=== PATIENT | female | born 1940 | race Caucasian/White ===

== ENCOUNTER 2021-02-07 23:18 | Inpatient (IN) | payer OTHER, MEDICAID ==
[~2021-02-07] VITALS: Ht 160 cm; Wt 87.1 kg
[2021-02-08] MEDS ORDERED: HEPARIN 5000 UNITS/ML VIAL IV ONE
[2021-02-08] MEDS ORDERED: ASPIRIN 325MG EC TABLET PO ONE
[2021-02-08 00:19] LABS: BASOPHILS % 0.4 % (0.0-2.0); EOSINOPHILS % 0.1 % (0.0-5.0); HEMATOCRIT. 36.6 % (36.0-48.0); HEMOGLOBIN. 12.4 g/dL (12.0-16.0); LYMPHOCYTES % 17.7 % (20.0-50.0); MEAN CORPUSCULAR HEMOGLOBIN 29.6 pg (28.0-32.0); MEAN CORPUSCULAR VOLUME 87.2 fL (81.0-99.0); MEAN PLATELET VOLUME 10.2 fl (7.4-10.4); MONOCYTES % 5.8 % (2.0-8.0); PLATELET 170 x1000/uL (130-400); RED CELL DISTRIBUTION WIDTH 13.3 % (11.6-14.6)
[2021-02-08 00:22] LABS: CHLORIDE 105 mEq/L (98-107)
[2021-02-08 01:01] LABS: INR 1.3; PARTIAL THROMBOPLASTIN TIME 52.3 sec (23.4-31.0); PROTHROMBIN TIME 13.9 sec (9.6-11.0)
[2021-02-08] MEDS ORDERED: HEPARIN 80 UNITS/KG BOLUS IV SCH (02:00)
[2021-02-08] MEDS ORDERED: HEPARIN BOLUS PRN aPTT <36 IV (02:00)
[2021-02-08] MEDS ORDERED: HEPARIN 25,000 UNITS PREMIX 250 ML IV SCH (02:00)
[2021-02-08] MEDS ORDERED: HEPARIN BOLUS PRN aPTT 37-44 IV (02:00)
[2021-02-08] MEDS ORDERED: IOHEXOL-350 100 ML BOTTLE ONE (04:41)
[2021-02-08 12:23] VITALS: BP 131/51
[2021-02-08] MEDS ORDERED: APIX5TAB MT (12:59)
[2021-02-08] MEDS ORDERED: LEVO25TA7 MT (13:03)
[2021-02-08] MEDS ORDERED: HYDROCODONE/ACETAMINOPHEN 5/325MG TABLET PO PRN (13:45)
[2021-02-08] MEDS ORDERED: ACETAMINOPHEN 325MG TABLET PO PRN (13:45)
[2021-02-08] MEDS ORDERED: IPRATROPIUM/ALBUTEROL 0.5-3(2.5)MG/3ML NEB HHN PRN (13:45)
[2021-02-08] MEDS ORDERED: ONDANSETRON HCL 4MG/2ML INJ IV PRN (13:45)
[2021-02-08] MEDS: LEVOFLOXACIN 500MG PREMIX 100 ML IV SCH (14:35)
[2021-02-08 16:00] VITALS: BP 103/58
[2021-02-08 20:00] VITALS: BP 130/49
[2021-02-09] VITALS: BP 126/52
[2021-02-09 04:00] VITALS: BP 126/58
[2021-02-09 06:37] LABS: BASOPHILS % 0.2 % (0.0-2.0); HEMATOCRIT. 34.6 % (36.0-48.0); HEMOGLOBIN. 11.6 g/dL (12.0-16.0); LYMPHOCYTES % 14.1 % (20.0-50.0); MEAN CORPUSCULAR HEMOGLOBIN 29.3 pg (28.0-32.0); MEAN CORPUSCULAR VOLUME 87.3 fL (81.0-99.0); MEAN PLATELET VOLUME 10.5 fl (7.4-10.4); MONOCYTES % 5.3 % (2.0-8.0); NEUTROPHILS % 80.4 % (40.0-76.0); PLATELET 168 x1000/uL (130-400); RED BLOOD CELL COUNT 3.96 mill/uL (4.2-5.4); RED CELL DISTRIBUTION WIDTH 13.2 % (11.6-14.6)
[2021-02-09 06:45] LABS: D-DIMER 0.74 mg/L FEU (<0.50); PARTIAL THROMBOPLASTIN TIME 48.4 sec (23.4-31.0)
[2021-02-09 07:03] LABS: CHLORIDE 106 mEq/L (98-107)
[2021-02-09 07:11] LABS: HDL CHOLESTEROL 31 mg/dL (40-59)
[2021-02-09 07:15] LABS: CREATINE KINASE 43 IU/L (26-192)
[2021-02-09 07:16] LABS: LDL CHOLESTEROL 74 mg/dL (5-100)
[2021-02-09] MEDS ORDERED: LEVOTHYROXINE SODIUM 25MCG TABLET PO SCH (07:40)
[2021-02-09 08:00] VITALS: BP 108/61
[2021-02-09] MEDS ORDERED: ENOXAPARIN 100MG/ML SYR SUBCUT SCH (11:00)
[2021-02-09 12:01] VITALS: BP 117/66
[2021-02-09] MEDS ORDERED: LEVO500T89 PO (12:59)
[2021-02-09] MEDS ORDERED: TRAM50TA94 MT (12:59)
[2021-02-09] MEDS: LEVOFLOXACIN 500MG PREMIX 100 ML IV SCH (15:03)
[2021-02-09 15:24] VITALS: BP 122/49
[2021-02-09 16:10] VITALS: BP 122/49
== END 2021-02-09 17:54 | disposition home or self-care (01) | DRG 299 ==
LOC: ER 23:18 → CANRESERV 02-08 07:08 → ENRESERV 02-08 07:08 → 7WST 02-08 11:30 → 6WST 02-09 08:40
PROVIDERS: ADMIT Internal Medicine; ATTEND Internal Medicine
DX: I82.622 Acute embolism and thrombosis of deep veins of left upper extremity (principal); J18.9 Pneumonia, unspecified organism; I82.621 Acute embolism and thrombosis of deep veins of right upper extremity; E03.9 Hypothyroidism, unspecified; Z20.822 Contact with and (suspected) exposure to COVID-19; F32.9 Major depressive disorder, single episode, unspecified; D64.9 Anemia, unspecified; Z90.49 Acquired absence of other specified parts of digestive tract; Z86.718 Personal history of other venous thrombosis and embolism; Z86.19 Personal history of other infectious and parasitic diseases; Z79.01 Long term (current) use of anticoagulants
CPT/HCPCS: 36415; 71045; 71275; 80053; 80061; 82550; 83880; 84436; 84443; 84484; 85025; 85379; 93005; 93306; 93970; 99285; J1644; J1650; J1956; J7040; Q9967; U0003; U0005

== ENCOUNTER 2021-05-01 08:40 | Emergency (ER) | payer OTHER, MEDICAID ==
[~2021-05-01] VITALS: Ht 157.5 cm; Wt 76.0 kg
[~2021-05-01 08:40] MED LIST: APIX5TAB MT; LEVO25TA7 MT; LEVO500T89 PO; TRAM50TA94 MT
[2021-05-01] MEDS ORDERED: KETOROLAC 60MG/2ML VIAL IM ONE (09:15)
[2021-05-01 10:23] VITALS: BP 109/70
[2021-05-01] MEDS ORDERED: IBUP-2029 MT (10:35)
[2021-05-01] MEDS ORDERED: CYCL10TA7 MT (10:36)
== END 2021-05-01 11:22 | disposition home or self-care (01) ==
LOC: ER 08:54
DX: M54.16 Radiculopathy, lumbar region (principal); M25.552 Pain in left hip; Z88.0 Allergy status to penicillin; Z91.013 Allergy to seafood; E03.9 Hypothyroidism, unspecified
CPT/HCPCS: 73502; 96372; 99283; J1885

== ENCOUNTER 2021-05-01 15:55 | Emergency (ER) | payer OTHER, MEDICAID ==
[~2021-05-01] VITALS: Ht 152.4 cm; Wt 83.0 kg
[~2021-05-01 15:55] MED LIST changes: +CYCL10TA7 MT; +IBUP-2029 MT
[2021-05-01] MEDS ORDERED: DIPHENHYDRAMINE 25MG CAPSULE PO ONE (16:45)
[2021-05-01] MEDS ORDERED: DEXAMETHASONE 4MG TABLET PO ONE (16:45)
[2021-05-01] MEDS ORDERED: FAMOTIDINE 20MG TABLET PO ONE (16:45)
[2021-05-01 18:38] VITALS: BP 144/65
== END 2021-05-01 18:44 | disposition home or self-care (01) ==
LOC: ER 15:55
DX: T78.3XXA Angioneurotic edema, initial encounter (principal); R21 Rash and other nonspecific skin eruption; Z88.0 Allergy status to penicillin; Z91.013 Allergy to seafood; F32.9 Major depressive disorder, single episode, unspecified; E03.9 Hypothyroidism, unspecified
CPT/HCPCS: 99284; J8540; Q0163